=== PATIENT | female | born 1945 | race Caucasian/White ===

== ENCOUNTER 2018-08-10 15:06 | Inpatient (IN) ==
--- NOTE | 2018-08-10 15:43 | EKG Report ---
Test Performed on : 08/10/2018 3:37:05 PM Test Reason : HTN Blood Pressure : / mmHG Vent. Rate : 077 BPM Atrial Rate : 077 BPM P-R Int : 168 ms QRS Dur : 066 ms QT Int : 380 ms P-R-T Axes : -08 012 043 degrees QTc Int : 430 ms Normal sinus rhythm. Normal ECG No previous ECGs available Unconfirmed Result
[2018-08-10 15:58] LABS: BASO# 0.02 X1000 (0.0-0.2); BASO% 0.3 % (0.0-0.8); EOS# 0.31 X1000 (0.0-0.7); EOS% 3.9 % (0.0-10.0); HEMATOCRIT 42.9 % (37.0-47.0); HEMOGLOBIN 13.7 g/dL (12.0-16.0); LYMPH# 1.28 X1000 (1.2-3.4); LYMPH% 16.3 % (20.5-51.1); MCH 26.6 PG (27-31); MCHC 31.9 g/dL (33-37); MCV 83.1 FL (81-99); MONO# 0.73 X1000 (0.11-0.59); MONO% 9.3 % (1.7-9.3); NEUT# 5.52 X1000 (1.4-6.5); NEUT% 70.2 % (42.2-75.2); PLT 293 X1000 (130-400); RBC 5.16 XMIL (4.2-5.4); RDW 14.9 % (11.5-14.5); WBC 7.86 X1000 (4.8-10.8)
[2018-08-10 16:15] LABS: ALB/GLOB RATIO 1.4; ALBUMIN 4.4 g/dL (3.5-5.0); CALCIUM 9.5 mg/dL (8.8-10.2); CREATININE 1.5 mg/dL (0.5-0.9); POTASSIUM 4.8 mmol/L (3.5-5.1); TOTAL BILIRUBIN 0.39 mg/dL (0.20-1.00); TOTAL PROTEIN 7.5 g/dL (6.3-8.3)
[2018-08-10 16:23] LABS: INR 0.96; PROTIME 13.6 Seconds (11.0-16.0)
--- NOTE | 2018-08-10 17:49 | PROVIDER DOCUMENTATION ---
HPI-Cardiac General - General Chief Complaint: B/P Problems Stated Complaint: HIGH BP Time Seen by Provider: 08/10/18 17:49 Allergies/Adverse Reactions: Patient Allergies Allergy/AdvReac Type Severity Reaction Status Date / Time No Known Allergies Allergy Verified 08/10/18 15:32 - History of Present Illness-Cardiac Nature of Presenting Problem: report elevated bp 200s while at the drugstore. +headache, blurred vision, nausea. +sob intermittently attributed to her asthma. out of atenolol /chlorthalidone for awhile. no prior history of ARF or CHF. denied any other symptoms. Review of Systems - Adult - REVIEW OF SYSTEMS - ADULT Constitutional: reports: no symptoms reported Eyes: reports: no symptoms reported Ears, Nose, Mouth & Throat: reports: no symptoms reported Cardiovascular: reports: no symptoms reported Respiratory: reports: no symptoms reported Gastrointestinal: reports: no symptoms reported Genitourinary: reports: no symptoms reported Musculoskeletal: reports: no symptoms reported Integumentary: reports: no symptoms reported Neurological: reports: no symptoms reported Psychiatric: reports: no symptoms reported Endocrine: reports: no symptoms reported Hematologic/Lymphatic: reports: no symptoms reported Allergic/Immunologic: reports: no symptoms reported All Other Systems: Reviewed and Negative Past History - Adult - PAST MEDICAL HISTORY-ADULT Review of Records: reports: Old Records Reviewed, Nursing Assessment Review, Medications Reviewed, Social history reviewed & non-contributory. Major Childhood Illnesses: reports: denies history Cardiovascular: reports: HTN Respiratory: reports: asthma Gastrointestinal: reports: denies history Obstetrical/Gynecological: reports: denies history Genitourinary: reports: denies history Musculoskeletal: reports: arthritis (rheumatoid) Neurological: reports: denies history Endocrine/Immune: reports: denies history Other Conditions: reports: denies history - IMMUNIZATION STATUS Childhood Immunizations: See Nurse Assessment Flu Vaccine: See Nurse Assessment - FAMILY HISTORY Family History: reviewed, not pertinent - SOCIAL HISTORY Smoking: denies Substance Use: none/never Alcohol Use Frequency: never Living Situation: alone Physical Exam-General - PHYSICAL EXAM-ADULT Initial Vital Signs Reviewed: Yes - CONSTITUTIONAL General Appearance: appears well, alert, no apparent distress - EYES Eyes: PERRL/EOMI, pink conjunctivae - HEAD, EARS, NOSE, MOUTH & THROAT HENMT: normocephalic/atraumatic, moist mucous membranes - NECK Neck: non-tender, full range of motion - RESPIRATORY Respiratory: chest non-tender, lungs clear, normal breath sounds - CARDIOVASCULAR Cardiovascular: normal peripheral pulses, regular rate, rhythm, no edema - GASTROINTESTINAL (ABDOMEN) Abdominal Exam: normal bowel sounds, non tender, soft - MUSCULOSKELETAL Back Exam: normal inspection, no CVA tenderness, no vertebral tenderness Extremity: normal range of motion, non-tender, normal gait Peripheral Pulses: radial (R): 2+, radial (L): 2+, dorsalis-pedis (R): 2+, dorsalis-pedis (L): 2+ - SKIN Integumentary: normal color, normal turgor, warm/dry - NEUROLOGIC Neurologic: engine dynamometer tester II-XII nml as tested, grossly normal, no motor/sensory deficits - PSYCHIATRIC Psych/Mental Status: normal mood/affect, normal thought content, normal thought process, oriented x 3 Progress - PLAN OF CARE/RESULTS Progress/Plan/Lab Results: Vital Signs - 8 hr 08/10/18 15:24 08/10/18 16:21 08/10/18 19:37 Temperature 97.0 F L Pulse Rate 82 88 Pulse Rate [Sitting] Pulse Rate [Standing] Pulse Rate [Supine] Respiratory Rate 16 20 Blood Pressure 207/126 192/106 Blood Pressure [Sitting] Blood Pressure [Standing] Blood Pressure [Supine] O2 Sat by Pulse Oximetry 98 99 93 L 08/10/18 19:39 08/10/18 19:40 08/10/18 19:41 Temperature Pulse Rate 81 76 85 Pulse Rate [Sitting] Pulse Rate [Standing] Pulse Rate [Supine] Respiratory Rate 23 20 24 Blood Pressure 191/157 180/101 Blood Pressure [Sitting] Blood Pressure [Standing] Blood Pressure [Supine] O2 Sat by Pulse Oximetry 97 96 96 08/10/18 19:47 08/10/18 19:48 08/10/18 19:50 Temperature Pulse Rate 87 86 84 Pulse Rate [Sitting] Pulse Rate [Standing] Pulse Rate [Supine] Respiratory Rate 24 18 24 Blood Pressure 188/103 Blood Pressure [Sitting] Blood Pressure [Standing] Blood Pressure [Supine] O2 Sat by Pulse Oximetry 97 97 98 08/10/18 19:52 08/10/18 19:56 08/10/18 20:00 Temperature Pulse Rate 84 83 81 Pulse Rate [Sitting] Pulse Rate [Standing] Pulse Rate [Supine] Respiratory Rate 20 24 19 Blood Pressure 180/164 182/104 Blood Pressure [Sitting] Blood Pressure [Standing] Blood Pressure [Supine] O2 Sat by Pulse Oximetry 98 97 98 08/10/18 20:01 08/10/18 20:06 08/10/18 20:07 Temperature Pulse Rate 81 80 79 Pulse Rate [Sitting] Pulse Rate [Standing] Pulse Rate [Supine] Respiratory Rate 22 25 H 22 Blood Pressure 176/106 170/100 Blood Pressure [Sitting] Blood Pressure [Standing] Blood Pressure [Supine] O2 Sat by Pulse Oximetry 99 98 97 08/10/18 20:10 08/10/18 20:11 08/10/18 20:16 Temperature Pulse Rate 82 84 80 Pulse Rate [Sitting] Pulse Rate [Standing] Pulse Rate [Supine] Respiratory Rate 17 15 16 Blood Pressure 184/88 173/94 Blood Pressure [Sitting] Blood Pressure [Standing] Blood Pressure [Supine] O2 Sat by Pulse Oximetry 98 99 99 08/10/18 20:20 08/10/18 20:22 08/10/18 20:27 Temperature Pulse Rate 81 86 84 Pulse Rate [Sitting] Pulse Rate [Standing] Pulse Rate [Supine] Respiratory Rate 26 H 19 23 Blood Pressure 178/108 171/94 Blood Pressure [Sitting] Blood Pressure [Standing] Blood Pressure [Supine] O2 Sat by Pulse Oximetry 98 98 98 08/10/18 20:30 08/10/18 20:31 08/10/18 20:32 Temperature Pulse Rate 86 84 87 Pulse Rate [Sitting] Pulse Rate [Standing] Pulse Rate [Supine] Respiratory Rate 20 20 18 Blood Pressure 165/92 Blood Pressure [Sitting] Blood Pressure [Standing] Blood Pressure [Supine] O2 Sat by Pulse Oximetry 98 98 98 08/10/18 20:36 08/10/18 20:40 08/10/18 20:42 Temperature Pulse Rate 84 89 85 Pulse Rate [Sitting] Pulse Rate [Standing] Pulse Rate [Supine] Respiratory Rate 20 20 25 H Blood Pressure 151/77 142/114 Blood Pressure [Sitting] Blood Pressure [Standing] Blood Pressure [Supine] O2 Sat by Pulse Oximetry 99 98 100 08/10/18 20:46 08/10/18 20:50 08/10/18 20:51 Temperature Pulse Rate 84 82 83 Pulse Rate [Sitting] Pulse Rate [Standing] Pulse Rate [Supine] Respiratory Rate 26 H 22 18 Blood Pressure 147/87 149/85 Blood Pressure [Sitting] Blood Pressure [Standing] Blood Pressure [Supine] O2 Sat by Pulse Oximetry 98 99 98 08/10/18 20:56 08/10/18 21:00 08/10/18 21:01 Temperature Pulse Rate 83 83 85 Pulse Rate [Sitting] Pulse Rate [Standing] Pulse Rate [Supine] Respiratory Rate 17 12 20 Blood Pressure 158/81 140/87 Blood Pressure [Sitting] Blood Pressure [Standing] Blood Pressure [Supine] O2 Sat by Pulse Oximetry 100 97 98 08/10/18 21:06 08/10/18 21:10 08/10/18 21:11 Temperature Pulse Rate 90 92 H 89 Pulse Rate [Sitting] Pulse Rate [Standing] Pulse Rate [Supine] Respiratory Rate 18 18 16 Blood Pressure 171/102 165/89 Blood Pressure [Sitting] Blood Pressure [Standing] Blood Pressure [Supine] O2 Sat by Pulse Oximetry 98 98 99 08/10/18 21:17 08/10/18 21:20 08/10/18 21:21 Temperature Pulse Rate 87 83 85 Pulse Rate [Sitting] Pulse Rate [Standing] Pulse Rate [Supine] Respiratory Rate 22 18 17 Blood Pressure 175/89 172/82 Blood Pressure [Sitting] Blood Pressure [Standing] Blood Pressure [Supine] O2 Sat by Pulse Oximetry 98 98 98 08/10/18 21:26 08/10/18 21:30 08/10/18 21:31 Temperature Pulse Rate 84 84 84 Pulse Rate [Sitting] Pulse Rate [Standing] Pulse Rate [Supine] Respiratory Rate 18 19 16 Blood Pressure 144/93 170/91 Blood Pressure [Sitting] Blood Pressure [Standing] Blood Pressure [Supine] O2 Sat by Pulse Oximetry 98 98 98 08/10/18 21:37 08/10/18 21:40 08/10/18 21:42 Temperature Pulse Rate 82 91 H 86 Pulse Rate [Sitting] Pulse Rate [Standing] Pulse Rate [Supine] Respiratory Rate 21 29 H 24 Blood Pressure 158/95 161/78 Blood Pressure [Sitting] Blood Pressure [Standing] Blood Pressure [Supine] O2 Sat by Pulse Oximetry 98 97 97 08/10/18 21:46 08/10/18 21:50 08/10/18 21:52 Temperature Pulse Rate 82 83 79 Pulse Rate [Sitting] Pulse Rate [Standing] Pulse Rate [Supine] Respiratory Rate 24 24 18 Blood Pressure 160/87 142/100 Blood Pressure [Sitting] Blood Pressure [Standing] Blood Pressure [Supine] O2 Sat by Pulse Oximetry 97 97 97 08/10/18 23:16 Temperature Pulse Rate Pulse Rate [Sitting] 88 Pulse Rate [Standing] 81 Pulse Rate [Supine] 75 Respiratory Rate Blood Pressure Blood Pressure [Sitting] 146/104 Blood Pressure [Standing] 163/91 Blood Pressure [Supine] 162/62 O2 Sat by Pulse Oximetry Laboratory Results - last 24 hr 08/10/18 08/10/18 08/10/18 15:31 15:31 15:31 WBC 7.86 RBC 5.16 Hgb 13.7 Hct 42.9 MCV 83.1 MCH 26.6 L MCHC 31.9 L RDW Std Deviation 14.9 H Plt Count 293 MPV 11.0 H Immature Gran % (Auto) 0.0 Neut % (Auto) 70.2 Lymph % (Auto) 16.3 L Dundy % (Auto) 9.3 Eos % (Auto) 3.9 Baso % (Auto) 0.3 Immature Gran # (Auto) 0.00 Neut # (Auto) 5.52 Lymph # (Auto) 1.28 Dundy # (Auto) 0.73 H Eos # (Auto) 0.31 Baso # (Auto) 0.02 PT INR PTT (Actin FS) Sodium 135 L Potassium 4.8 Chloride 100 Carbon Dioxide 24 L Anion Gap 11 BUN 20 Creatinine 1.5 H Estimated GFR/1.73 m2 34 BUN/Creatinine Ratio 13 Glucose 115 H Estimat Average Glucose Hemoglobin A1c Calculated Osmolality 274 Calcium 9.5 Total Bilirubin 0.39 AST 22 ALT 13 Alkaline Phosphatase 89 Creatine Kinase 60 Troponin T Ehl-X-Geplcnbndht Pept 1281 H Total Protein 7.5 Albumin 4.4 Globulin 3.1 Albumin/Globulin Ratio 1.4 TSH 08/10/18 08/10/18 08/10/18 15:31 15:31 15:31 WBC RBC Hgb Hct MCV MCH MCHC RDW Std Deviation Plt Count MPV Immature Gran % (Auto) Neut % (Auto) Lymph % (Auto) Dundy % (Auto) Eos % (Auto) Baso % (Auto) Immature Gran # (Auto) Neut # (Auto) Lymph # (Auto) Dundy # (Auto) Eos # (Auto) Baso # (Auto) PT 13.6 INR 0.96 PTT (Actin FS) 38.0 Sodium Potassium Chloride Carbon Dioxide Anion Gap BUN Creatinine Estimated GFR/1.73 m2 BUN/Creatinine Ratio Glucose Estimat Average Glucose 108 Hemoglobin A1c 5.4 Calculated Osmolality Calcium Total Bilirubin AST ALT Alkaline Phosphatase Creatine Kinase Troponin T < 0.010 Fnv-E-Kkyklrdfofu Pept Total Protein Albumin Globulin Albumin/Globulin Ratio TSH 08/10/18 15:31 WBC RBC Hgb Hct MCV MCH MCHC RDW Std Deviation Plt Count MPV Immature Gran % (Auto) Neut % (Auto) Lymph % (Auto) Dundy % (Auto) Eos % (Auto) Baso % (Auto) Immature Gran # (Auto) Neut # (Auto) Lymph # (Auto) Dundy # (Auto) Eos # (Auto) Baso # (Auto) PT INR PTT (Actin FS) Sodium Potassium Chloride Carbon Dioxide Anion Gap BUN Creatinine Estimated GFR/1.73 m2 BUN/Creatinine Ratio Glucose Estimat Average Glucose Hemoglobin A1c Calculated Osmolality Calcium Total Bilirubin AST ALT Alkaline Phosphatase Creatine Kinase Troponin T Sqg-L-Kmzlzdqzzex Pept Total Protein Albumin Globulin Albumin/Globulin Ratio TSH 3.29 Orders Category Date Time Status Cardiac Monitoring DIRECTED Care 08/10/18 15:27 Active Orthostatic Vital Signs NOW Care 08/10/18 21:52 Active Repeat Vital Signs .Blood Pressure Care 08/10/18 21:52 Active Saline Loc NOW Care 08/10/18 15:[address] HEAD W/O CONTRAST [CT] Stat Exams 08/10/18 18:09 Completed cxr [CHEST-2 VIEWS] [RAD] Stat Exams 08/10/18 18:20 Completed A1C HGB W EST AVG GLUCOSE [CHEM] Stat Lab 08/10/18 15:31 Completed CBC WITH ELECTRONIC DIFF [HEME] Stat Lab 08/10/18 15:31 Completed CK PROFILE [SP CHEM] Q8H Lab 08/10/18 22:06 Ordered CK PROFILE [SP CHEM] Q8H Lab 08/11/18 06:06 Ordered CK PROFILE [SP CHEM] Q8H Lab 08/11/18 14:06 Ordered CK PROFILE [SP CHEM] Stat Lab 08/10/18 15:31 Completed COMPREHENSIVE METABOLIC PANEL [CHEM] Stat Lab 08/10/18 15:31 Completed PRO B-NATRIURETIC PEPTIDE Stat Lab 08/10/18 15:31 Completed PROTIME WITH INR [COAG] Stat Lab 08/10/18 15:31 Completed PTT [COAG] Stat Lab 08/10/18 15:31 Completed TROPONIN T Q8H Lab 08/10/18 22:06 Ordered TROPONIN T Q8H Lab 08/11/18 06:06 Ordered TROPONIN T Q8H Lab 08/11/18 14:06 Ordered TROPONIN T Stat Lab 08/10/18 15:31 Completed TSH Stat Lab 08/10/18 15:31 Completed UR CREAT RANDOM [URCHEM] Stat Lab 08/10/18 22:09 Uncollected UR OSMOLALITY [CHEM] Stat Lab 08/10/18 22:09 Uncollected UR PROT RANDOM [URCHEM] Stat Lab 08/10/18 22:09 Uncollected UR SODIUM [URCHEM] Stat Lab 08/10/18 22:09 Uncollected URINALYSIS W/POSS RFLX CULT [URINALYSIS] Stat Lab 08/10/18 22:09 Ordered Acetaminophen [Tylenol] Med 08/10/18 21:53 Discontinued 650 mg PO NOW ONE Amlodipine [Norvasc] Med 08/10/18 21:53 Discontinued 5 mg PO NOW ONE Furosemide [Lasix] Med 08/10/18 22:35 Discontinued 40 mg IV NOW ONE Labetalol Med 08/10/18 18:10 Discontinued 10 mg IV NOW ONE CP/SOB/Palp >45 yrs of Age Stat Oth 08/10/18 15:27 Ordered EKG [EKG] Stat Ther 08/10/18 15:27 Draft EKG [EKG] Stat Ther 08/10/18 18:16 Ordered Transfer/Admit Order [TRANSFER] Routine Transfer 08/10/18 20:[address], [place] [address] Department of Imaging Patient: HALEY FRIAS ADM Date: 08/10/18 MR#: [id number] : 1945 ADM Status: REG ER Age/Sex: 73/F Room/Bed: Loc: ED Ordering Physician: Kalli Palacios MD Family Physician: Joseph Christianson MD Reason for Procedure: cva ___ Signed EXAM: CT HEAD W/O CONTRAST - 08/10/2018 HISTORY: cva TECHNIQUE: CT head without contrast COMPARISON: None. FINDINGS: There is no evidence of intracranial hemorrhage, mass effect, midline shift, or hydrocephalus. There is mild ventricular asymmetry compatible with normal variation. There are mild chronic microvascular ischemic changes. There is no evidence of recent infarct, although acute infarcts may not be immediately visible. There are atherosclerotic calcifications noted at the base the brain. There is no evidence of skull fracture. IMPRESSION: No visible acute intracranial abnormality. No hemorrhage or mass effect. This exam was performed using automated exposure control, adjustment of mA or kV according to patient size, and/or use of iterative reconstruction technique. Electronically signed by Mj Weiss 08/10/2018 7:46 PM 08/10/181945 Interpreting Physician: Mj Weiss MD Dictated Date/Time: 08/10/181941 cc: Kalli Palacios MD; Joseph Christianson MD [address], [place] [address] Department of Imaging Patient: HALEY FRIAS ADM Date: 08/10/18 MR#: [id number] : 1945 ADM Status: REG Age/Sex: 73/F Room/Bed: Loc: ED Ordering Physician: Kalli Palacios MD Family Physician: Joseph Christianson MD Reason for Procedure: chf ___ Signed EXAM: CHEST-2 VIEWS - 08/10/2018 HISTORY: chf TECHNIQUE: Chest two views COMPARISON: 04/04/2018 FINDINGS: Heart size is within normal limits. There is mild prominence of vascular and interstitial markings. There is no dense consolidation, substantial pleural effusion, or pneumothorax identified. IMPRESSION: Apparent mild pulmonary edema. Electronically signed by Mj Weiss 08/10/2018 7:51 PM 08/10/181950 Interpreting Physician: Mj Weiss MD Dictated Date/Time: 08/10/181946 cc: Kalli Palacios MD; Joseph Christianson MD Result Diagrams: 08/10/18 15:31 08/10/18 15:31 - CONSULTS/PCP/HOSPITALIST Notification #1 *Consult/PCP/Hospitalist*: dr. Zheng/Dany Time Discussed: 18:31 (new onset heart failure. ARF, HTN uncontrolled. ) Consult Disposition: Admit (will pass on next shift) Departure - Departure Date of Disposition Decision: 08/10/18 Time of Disposition Decision: 18:32 DIAGNOSIS: CHF (congestive heart failure), ARF (acute renal failure), Pulmonary edema Disposition: ADMITTED INPATIENT 09 Certified Medical Emergency: Emergent Condition: Stable Referrals and Follow-Ups: Joseph Christianson MD [Primary Care Provider] - - Critical Care Note This patient required my direct & personal management of CC.: No Attestation - Physician/ ESSIE Attestation The physician spent face to face time with patient:: Yes Advanced Practice Provider documentation review:: Supervising physician onsite and consulted in the evaluation and care of this patient. The physician did have a face to face encounter with the patient.
[2018-08-10] MEDS ORDERED: LABETALOL IV ONE (18:10)
--- NOTE | 2018-08-10 19:48 | Diag Imaging Result Doc PS360 ---
EXAM: CT HEAD W/O CONTRAST - 08/10/2018 HISTORY: cva TECHNIQUE: CT head without contrast COMPARISON: None. FINDINGS: There is no evidence of intracranial hemorrhage, mass effect, midline shift, or hydrocephalus. There is mild ventricular asymmetry compatible with normal variation. There are mild chronic microvascular ischemic changes. There is no evidence of recent infarct, although acute infarcts may not be immediately visible. There are atherosclerotic calcifications noted at the base the brain. There is no evidence of skull fracture. IMPRESSION: No visible acute intracranial abnormality. No hemorrhage or mass effect. This exam was performed using automated exposure control, adjustment of mA or kV according to patient size, and/or use of iterative reconstruction technique. Electronically signed by Mj Weiss 08/10/2018 7:46 PM
--- NOTE | 2018-08-10 19:53 | Diag Imaging Result Doc PS360 ---
EXAM: CHEST-2 VIEWS - 08/10/2018 HISTORY: chf TECHNIQUE: Chest two views COMPARISON: 04/04/2018 FINDINGS: Heart size is within normal limits. There is mild prominence of vascular and interstitial markings. There is no dense consolidation, substantial pleural effusion, or pneumothorax identified. IMPRESSION: Apparent mild pulmonary edema. Electronically signed by Mj Weiss 08/10/2018 7:51 PM
[2018-08-10] MEDS ORDERED: TYLENOL PO ONE (21:53)
[2018-08-10] MEDS ORDERED: NORVASC PO ONE (21:53)
[2018-08-10 22:33] LABS: HEMOGLOBIN A1C 5.4 % (4.8-6.0)
[2018-08-10] MEDS ORDERED: LASIX IV ONE (22:35)
[2018-08-11] LABS: URINE SOURCE CLEAN CATCH
[2018-08-11 00:05] LABS: BILIRUBIN URINE NEGATIVE (NEGATIVE); BLOOD URINE NEGATIVE (NEGATIVE); COLOR STRAW; GLUCOSE URINE NEGATIVE (NEGATIVE); KETONE URINE NEGATIVE (NEGATIVE); LEUKOCYTES URINE NEGATIVE (NEGATIVE); NITRITE URINE NEGATIVE (NEGATIVE); PH URINE 6.5; PROTEIN URINE NEGATIVE (NEGATIVE); TURBIDITY URINE CLEAR (CLEAR); UR EPITHELIAL CELLS <10 /HPF (<10); URINE BACTERIA NEGATIVE /HPF; URINE RBC <10 /HPF (<10); URINE WBC <10 /HPF (<10); UROBILINOGEN URINE NORMAL (NORMAL)
[2018-08-11] MEDS ORDERED: TYLENOL PO PRN (00:10)
[2018-08-11 00:56] LABS: UR CREAT RANDOM 28.8 mg/dL (11-20); UR PROT RANDOM 5.6 mg/dL
[2018-08-11] MEDS ORDERED: ULTRAM PO PRN (05:37)
[2018-08-11] MEDS ORDERED: LABETALOL IV PRN (05:41)
[2018-08-11 05:54] LABS: BASO# 0.02 X1000 (0.0-0.2); BASO% 0.3 % (0.0-0.8); EOS# 0.19 X1000 (0.0-0.7); EOS% 2.6 % (0.0-10.0); HEMATOCRIT 41.7 % (37.0-47.0); HEMOGLOBIN 13.7 g/dL (12.0-16.0); LYMPH# 1.12 X1000 (1.2-3.4); LYMPH% 15.5 % (20.5-51.1); MCH 27.3 PG (27-31); MCHC 32.9 g/dL (33-37); MCV 83.2 FL (81-99); MONO# 0.68 X1000 (0.11-0.59); MONO% 9.4 % (1.7-9.3); MPV 10.8 FL (7.4-10.4); NEUT# 5.22 X1000 (1.4-6.5); NEUT% 72.2 % (42.2-75.2); PLT 193 X1000 (130-400); RBC 5.01 XMIL (4.2-5.4); RDW 14.8 % (11.5-14.5); WBC 7.23 X1000 (4.8-10.8)
[2018-08-11] MEDS: ZOFRAN IV PRN ×3 (06:30→18:21)
[2018-08-11 07:03] LABS: CALCIUM 9.9 mg/dL (8.8-10.2); CREATININE 1.5 mg/dL (0.5-0.9); MAGNESIUM 1.3 mg/dL (1.5-2.7); POTASSIUM 3.7 mmol/L (3.5-5.1)
[2018-08-11] MEDS: PRILOSEC PO SCH (07:31)
--- NOTE | 2018-08-11 08:16 | EKG Report ---
Test Performed on : 08/11/2018 00:55:00 AM Test Reason : elevated troponin Blood Pressure : / mmHG Vent. Rate : 070 BPM Atrial Rate : 070 BPM P-R Int : 164 ms QRS Dur : 070 ms QT Int : 440 ms P-R-T Axes : -29 026 079 degrees QTc Int : 475 ms Normal sinus rhythm. Normal ECG When compared with ECG of 10-AUG-2018 15:37, (Unconfirmed) No significant change was found Unconfirmed Result
--- NOTE | 2018-08-11 08:48 | Diag Imaging Result Doc PS360 ---
CHEST-2 VIEWS - 08/11/2018 INDICATION: Pulmonary Edema/SOB COMPARISON: 08/10/2018 FINDINGS: There has been resolution of the pulmonary edema. Heart size and pulmonary vascularity is normal. No pneumothorax or significant pleural effusion. IMPRESSION: Negative exam. Electronically signed by Arturo Springer 08/11/2018 8:46 AM
[2018-08-11] MEDS ORDERED: LEXAPRO PO SCH (09:00)
[2018-08-11] MEDS ORDERED: NORVASC PO SCH (09:00)
[2018-08-11] MEDS ORDERED: LASIX IV SCH (09:00)
--- NOTE | 2018-08-11 14:37 | PROGRESS NOTE ---
DATE: 08/11/2018 INTERVAL HISTORY: Ms Lux was admitted overnight for hypertensive emergency and acute form of cardiogenic pulmonary edema. She was started on antihypertensive medication, intravenous Lasix. Following she started feeling better. SUBJECTIVE: At the time of my evaluation, patient is complaining of headache and weakness. We discussed about her long-standing high blood pressure. We discussed about getting an echocardiogram. We discussed about negative heart attack markers. I answered all of the questions. We discussed about gradually increasing her antihypertensive medication dose and physical therapy. VITALS: Temperature of 97.3 degrees, pulse 92, respiratory rate 16, blood pressure 131/76 saturating 98% room air. PHYSICAL EXAMINATION: She does not appear in any acute distress. No pallor, cyanosis, clubbing, or icterus. Oral cavity is moist.Lungs: Air entry bilaterally equal no wheeze rhonchi or crackles. Cardiovascular: S1, S2 normal. No murmur or gallop. Abdomen: Soft, nontender. No jugular venous distention. She does not have lower extremity edema. She has trouble getting up from lying down position because of weakness. However, she was able to do that with my help. Neurologic: She is alert oriented x3. LABS: Suggestive of normal hemoglobin, hematocrit, platelet count. She does have what appears to be chronic kidney disease stage 3 and hypomagnesemia, which I will replete. Her proBNP on admission was 1200 and her troponin though 1 time was elevated to 0.15 and after that has been showing flat trend. EKG was suggestive of normal sinus rhythm. IMAGING: Head CT on admission did not have any acute intracranial abnormalities. ASSESSMENT AND PLAN: 1. Hypertensive emergency. The patient also reported to me prior history of irregular heart rhythm. I am unsure if she actually had a paroxysmal atrial fibrillation. I will resume her home antihypertensive medication which includes atenolol and chlorthalidone. I will follow up with echocardiogram. 2. Acute pulmonary edema in the setting of hypertensive emergency. She is status post intravenous Lasix. I will hold off on further Lasix and would add it back according to clinical examination tomorrow. 3. History of chronic gastroesophageal reflux disease , anxiety and chronic pain. I will resume her home escitalopram, omeprazole and tramadol as needed. DISPOSITION: The patient remains inside the hospital. I will also have physical therapy evaluation since she has become significantly weak. Plan of care was discussed with the patient and all of her questions have been answered. ADDENDUM: I was informed that the patient had a fall when she was feeling nauseous. She lost her balance and fell down and hit her head. She had some hematoma and she was complaining of headache. She is not on anticoagulation. I will assess her and if needed, we will repeat the CT scan. cc: Adam Ron MD
[2018-08-11] MEDS: MAGNESIUM SULFATE 2 GM/S.W.I. 2 GM/50 ML IVPB IV SCH ×2 (15:40→18:14)
--- NOTE | 2018-08-11 19:04 | HISTORY AND PHYSICAL ---
PRIMARY CARE PROVIDER: Joseph Christianson MD TIME OF ADMISSION: 2015 hours. CHIEF COMPLAINT: Elevated blood pressure. HISTORY OF PRESENT ILLNESS: Ms. Lux is a 73-year-old female with a past medical history most notable for hypertension and congestive heart failure. The patient reports that for approximately 1 month now she has been out of her regularly prescribed blood pressure medicine of atenolol/chlorthalidone. For the past few weeks the patient has reported symptoms of fatigue, increasing weakness, shortness of breath initially with exertion, though now she is reporting shortness of breath at rest as well. The patient reported over the last few days now that she has had headache and now is reporting some blurry vision as well. She is reporting some dizziness upon standing and with ambulation. At this time as previously mentioned, she is reporting orthopnea and exertional dyspnea, though she is denying any paroxysmal nocturnal dyspnea. She denies any ataxia, numbness, tingling, unilateral weakness or any speech disturbances. She denies any chest pain, cough, abdominal pain, nausea, vomiting or diarrhea. She denies any hematochezia or melena. She denies any dysuria or urinary frequency. She also denies any swelling in her extremities. The patient does report that she has chronic pain secondary to osteoarthritis and bilateral hip pain from previous hip surgery. Other than this, she has no new reported extremity pain. The patient was seen by her doctor yesterday in the office, Dr. Christianson. She was given a refill for her prescription, though even after the patient taking a dose of this her blood pressure was still elevated and she was still having symptoms as described above. She did call her doctor's office, who recommended her to come to the ER for further evaluation. Upon initial arrival to the ER, the patient's heart rate was 82, respirations 16, blood pressure was elevated at 207/126 with a MAP of 153. She had oxygen saturation of 98% on room air. Given her reported symptoms, further evaluation with a head CT without contrast was performed, which was negative for any acute intracranial abnormality. Chest x-ray did reveal apparent mild pulmonary edema. Laboratory results revealed an elevated creatinine at 1.5 with a GFR of 34 and slightly elevated proBNP of 1281. The initial cardiac enzymes are negative. The patient has been given some IV labetalol in the ER, and her blood pressure has improved, though is still elevated. The patient is reporting that her symptoms are improving, though she still is complaining of headache, blurry vision and some dizziness at this time. She does have some crackles noted in bilateral bases. There is no overt JVD noted. She has no peripheral edema noted as well. The patient will be admitted for further treatment and evaluation. REVIEW OF SYSTEMS: A 14-point review of systems was conducted with the patient. All were negative except for pertinent positives mentioned in the above HPI. PAST MEDICAL HISTORY: 1. Hypertension. 2. Congestive heart failure. 3. Chronic kidney disease which is followed by Dr. Munguia. 4. Asthma. 5. Osteoarthritis. 6. Osteoporosis. 7. Gastroesophageal reflux disease. 8. History of anxiety/depression for which the patient has recently been placed on Lexapro yesterday. PAST SURGICAL HISTORY: Bilateral hip replacements. SOCIAL HISTORY: The patient has no known history of tobacco, alcohol or illicit drug use. She does live alone but has family that lives close by, that does check on her very frequently. The patient is . She lost her approximately 2 years ago. She does report that since losing her she has had, according to her and family members at bedside, anxiety and depression, and has recently been having difficulty sleeping at night. The patient reports that she was given a new prescription for Lexapro yesterday. She does have assistive device for ambulation of a cane as needed. FAMILY HISTORY: Positive for her mother having a history of asthma. Her father secondary to a stroke. She reports that initially he had an ischemic stroke and then had a stroke a few years later that was hemorrhagic, from which he did pass away from complications of this. He also had a history of hypertension. ALLERGIES: The patient has no known allergies. HOME MEDICATIONS: 1. Atenolol/chlorthalidone 50/25 mg tablet 1 tablet p.o. daily. 2. Lexapro 10 mg p.o. daily. 3. Lansoprazole delayed-release 30 mg capsule p.o. daily. 4. Losartan potassium 100 mg p.o. daily. 5. Tramadol 50 mg tablet p.o. b.i.d. LABORATORY DATA: White blood cell count is 7860, hemoglobin 13.7, hematocrit 42.9, platelet count is 293,000. PT 13.6, INR 0.96, PTT is 38. Sodium 135, potassium 4.8, chloride 107, bicarbonate is 24, BUN 20, creatinine 1.5 with a GFR of 34, glucose is 115, calcium 9.5. Liver function tests within normal limits. CK 60. Troponin less than 0.01. ProBNP is 1291. TSH was 3.29. Urinalysis was obtained via clean catch and was negative for protein, glucose, ketones, blood, nitrites, leukocytes, white blood cells or bacteria. DIAGNOSTIC DATA: 1. Chest x-ray did show some mild pulmonary edema. 2. CT of the head showed no acute intracranial abnormality. 3. EKG showed normal sinus rhythm at a rate of 77 with a QTc of 430. PHYSICAL EXAMINATION: VITAL SIGNS: Heart rate 84, respirations 20, blood pressure is 171/94 with a MAP of 100, oxygen saturation is 98% on room air. GENERAL: Ms. Lux is a very pleasant 73-year-old female. She was resting in the ER stretcher. She was in no acute distress. She was awake, alert and able to answer questions appropriately. HEENT: Head is atraumatic, normocephalic. Pupils are equal, round and reactive to light, were 3 mm bilaterally and brisk. Oral mucosa is moist. Oropharynx is clear. NECK: Supple. Trachea midline. No carotid bruits noted on auscultation bilaterally. No JVD noted. CARDIOVASCULAR: The patient had S1, S2 present. No murmurs, gallops or rubs appreciated, with a regular rate and rhythm. PULMONARY: The patient has symmetrical chest expansion bilaterally. Lung sounds are clear to auscultation in bilateral upper huizar, though she did have fine crackles noted in bilateral bases. ABDOMEN: Soft, nontender, nondistended. Bowel sounds are present in all 4 quadrants, were normoactive. EXTREMITIES: No cyanosis, clubbing or edema noted. Pulse, motor and sensory were intact in all extremities. Radial pulses and pedal pulses were 2+ bilaterally. INTEGUMENTARY: The patient's skin is pink, warm and dry. NEUROLOGICAL: The patient is alert and oriented to person, place, time and situation. The patient's huizar of vision are intact. Pupils are equal, round and reactive to light, were 3 mm bilaterally and brisk. She has no speech disturbances noted. She has no ataxia or [*]present at this time. The patient is reporting generalized weakness. Muscle strength and hand grasps are equal bilaterally. She has no facial droop noted. There are no focal neurological deficits noted at this time. ASSESSMENT AND PLAN: 1. Hypertensive urgency. As previously mentioned, the patient has been out of her blood pressure medications of atenolol/chlorthalidone. This is likely the cause of her symptoms of headache, blurry vision, and some dizziness that she is still experiencing at this time, though she is reporting that her symptoms are improving as her blood pressure has improved. The patient was given a dose of intravenous labetalol in the emergency room and her blood pressure has improved. We will go ahead and give her a dose of Norvasc 5 mg tonight and continue this b.i.d. We will bring her blood pressure down slowly. There is what appears to be possible [id number] kidney disease. Given this, for tonight and in the morning we will hold her losartan. We will continue to monitor this closely. We will do frequent vital signs. She will be placed on continuous cardiac telemetry. 2. Mild congestive heart failure exacerbation. The patient, as previously mentioned, has been out of her atenolol/chlorthalidone combination medicine. Given this, her hypertensive urgency has caused her to have development of some pulmonary edema. We will go ahead and give her dose of Lasix 40 mg intravenously. We will continue this just daily and closely monitor response to this. We will perform an echocardiogram in the morning. The patient's second troponin had increased some, but the patient is still denying chest pain at this time. This may be related to her hypertensive urgency. Repeat electrocardiogram did not show any acute changes. We will continue with the series of cardiac enzymes and another electrocardiogram in the morning, and monitor this closely. 3. Acute on chronic kidney disease. On looking back, the patient has had elevated creatinine ranging from 1.3 to 1.8 since 2012. Though we do not have any creatinine to compare this to for the last few months. Given this, as previously mentioned, we have held her losartan. We will repeat chemistries in the morning. We will do strict intake and output. We will avoid nephrotoxic medications and renally dose medications as necessary. 4. History of asthma. We have placed p.r.n. DuoNeb treatments as needed. 5. Gastroesophageal reflux disease. We will continue her regularly prescribed home medication of lansoprazole. 6. Anxiety and depression. We will continue her Lexapro. 7. Deep vein thrombosis prophylaxis will be provided with sequential compression devices. The patient has been placed on the medical floor with telemetry. She will have vital signs q.4 hours. We will do neurologic checks q.4 hours as well. She will be on a heart-healthy diet. The patient has expressed that once her condition has improved she would like to be discharged as soon as possible. Further orders and recommendations pending hospital course, diagnostic studies and physician evaluation. Dictated by JOSE Adam for Artem Banks MD cc: Artem Banks MD
--- NOTE | 2018-08-11 19:34 | PROGRESS NOTE ---
DATE: 08/11/2018 ADDENDUM: Apparently, Ms. Lux was having nausea, and when patient's niece was at bedside, the patient initially tried to come out of bed and sit on the commode, and then later on, niece helped her sit at the edge of the bed, and the niece went to get something so that she can throw up. The patient lost her balance, and she fell down and hit her head. I was notified of this. She developed about a 1-inch linear laceration affecting the right forehead. I evaluated the patient. At the time, the patient is getting echocardiogram. She is complaining of some headache, but she has been having headaches since presentation. Currently on my neurological examination, she is alert and oriented x3. Bilateral pupils are equal, reacting to light. She is able to raise both of her eyebrows and smile. Her speech appears normal. She has intact cough. Her speech appears normal. She has intact sensation, bilateral upper and lower extremities and trunk. She has power of 5/5 on bilateral upper and lower extremity. Her neurological examination is essentially nonfocal. I discussed with the nurse about just continuing with the neuro checks, and she does not need CT scan of the head at the moment. If her nausea and vomiting continues, I will consider further imaging as appropriate. Plan of care discussed the patient and her niece at bedside. All of their questions have been answered. cc: Adam Ron MD
[2018-08-12] MEDS: DUONEB (A & A) INH PRN ×3 (02:36→15:28)
[2018-08-12] MEDS: PRILOSEC PO SCH (06:06)
[2018-08-12] MEDS ORDERED: NORVASC PO SCH (09:00)
[2018-08-12] MEDS: TENORMIN PO SCH (09:40)
[2018-08-12] MEDS: HYGROTON PO SCH (09:40)
--- NOTE | 2018-08-12 14:17 | PROGRESS NOTE ---
DATE: 08/12/2018 INTERVAL HISTORY: No acute events overnight. SUBJECTIVE: The patient's family is at bedside. The patient denies any new complaints. She complains of still feeling very weak and is complaining of a headache without any new symptoms. She has not had any more nausea or vomiting since morning time. She tells me that she has had issues with chronic nausea and vomiting and she has been seeing a software support technician at [facility]. PHYSICAL EXAMINATION: Vital signs: Currently, temperature 97.5 degrees, pulse 78, respiratory rate 18, blood pressure 157/69, saturating 92% on room air. General: Appears weak, not in any acute distress. She has a bruise of about 3 x 3 cm on the right forehead with some tenderness surrounding. She does not have any injury inside the mouth. She does have poor dentition though. Otherwise oral cavity is moist. Lungs: Air entry bilaterally equal. No wheeze, rhonchi, crackles. Cardiovascular: S1, S2 normal. No murmur, rub, or gallop. Abdomen: Soft, nontender. No lower extremity edema. She is able to hold my arm and sit up in the bed without any trouble. Extremities: She is able to move both lower extremities, upper extremities while repositioning herself without any trouble. Neurologic: She is alert and oriented x3. LABORATORY DATA: No CBC or BMP today. No microbiological data. No imaging. ASSESSMENT AND PLAN: 1. Hypertensive emergency due to medication noncompliance. Continue atenolol chlorthalidone and adjust dose according to has tolerated acute pulmonary edema in the setting of hypertensive emergency, now resolved status post intravenous Lasix. 2. Acute pulmonary edema due to HTN emergency: Plan as mentioned above. 3. Mechanical fall with forehead hematoma: Local wound dressing. 2. Others. Continue omeprazole for chronic gastroesophageal reflux disease, tramadol for chronic pain. I am holding escitalopram considering her nausea and vomiting. 3. Disposition. I will continue physical therapy. The patient has expressed that she would not like to go to rehab and she would prefer home physical therapy. She may also prefer Meals on Wheels and patient's family at bedside agrees. I discussed with them about that we might want to observe her for another 24 hours and if she continues to do better, may be discharged on Tuesday with home physical therapy. They all are in agreement. Plan of care discussed with the patient as well. All of her questions have been satisfactorily answered. cc: Adam Ron MD MTDD
[2018-08-13] MEDS: PRILOSEC PO SCH (06:24)
[2018-08-13 06:50] LABS: BASO# 0.01 X1000 (0.0-0.2); BASO% 0.1 % (0.0-0.8); EOS# 0.04 X1000 (0.0-0.7); EOS% 0.3 % (0.0-10.0); HEMATOCRIT 42.1 % (37.0-47.0); IMM GRAN# 0.02 X1000 (0.0-0.04); IMM GRAN% 0.2 % (0.0-0.5); LYMPH# 1.62 X1000 (1.2-3.4); LYMPH% 14.2 % (20.5-51.1); MCH 27.2 PG (27-31); MCHC 33.3 g/dL (33-37); MCV 81.7 FL (81-99); MONO# 1.04 X1000 (0.11-0.59); MONO% 9.1 % (1.7-9.3); MPV 11.1 FL (7.4-10.4); NEUT# 8.71 X1000 (1.4-6.5); NEUT% 76.1 % (42.2-75.2); PLT 311 X1000 (130-400); RBC 5.15 XMIL (4.2-5.4); RDW 14.3 % (11.5-14.5); WBC 11.44 X1000 (4.8-10.8)
[2018-08-13 07:27] LABS: CALCIUM 9.6 mg/dL (8.8-10.2); CREATININE 1.7 mg/dL (0.5-0.9); MAGNESIUM 2.1 mg/dL (1.5-2.7); PHOSPHORUS 3.8 mg/dL (2.7-4.5); POTASSIUM 3.5 mmol/L (3.5-5.1)
[2018-08-13] MEDS: TENORMIN PO SCH (08:26)
[2018-08-13] MEDS: HYGROTON PO SCH (08:26)
[2018-08-13] MEDS: DUONEB (A & A) INH PRN (09:12)
--- NOTE | 2018-08-13 15:29 | PROGRESS NOTE ---
DATE: 08/13/2018 INTERVAL HISTORY: No acute event overnight. On my initial encounter, patient was walking around her bed, trying to get off the potty which she was doing without anyone's help. Today, she is denying any chest pain, shortness of breath, abdominal pain, nausea, vomiting. She continues to have a little bit of headache for which she is taking acetaminophen as needed. VITALS: Currently detect a temperature of 97.9 degrees, pulse 65, respiratory rate 14, blood pressure 143/63, saturating 98% on room air. PHYSICAL EXAMINATION: General: She does not appear in any acute distress. She appears pleasant. She has a bruise of about 2 x 2 cm on the right forehead with some tenderness surrounding. Otherwise, oral cavity is moist. No pallor, cyanosis, clubbing, or icterus. Lungs: Air entry bilaterally equal. No wheeze, rhonchi, crackles. Cardiovascular: S1, S2 normal. No murmur, rub, or gallop. Abdomen: Soft, nontender. Extremities: No lower extremity edema. She is alert and oriented x3. LABS: Suggestive of acceptable range of WBC count, normal hemoglobin and hematocrit, and normal platelet count. Sodium of 132, chloride of 91, elevated BUN and creatinine suggestive of chronic kidney disease stage 3. No new microbiological data. No new imaging data. Echocardiogram had suggested ejection fraction of 50%. There was hypokinesia in the anterior septum. However, it was a difficult study. The patient was not having any chest pain. She was advised to follow up with heart doctor as an outpatient. ASSESSMENT AND PLAN: 1. Hypertensive emergency and acute cardiogenic pulmonary edema due to medication noncompliance. Continue atenolol, chlorthalidone which is controlling her blood pressure better. She is off intravenous Lasix and her pulmonary edema has been resolved. 2. Mechanical fall with forehead hematoma while inside the hospital. Continue local wound dressing. She does not have any focal neurological deficit. 3. Others. Continue omeprazole for chronic gastroesophageal reflux disease; tramadol for chronic pain, however, chronic kidney disease stage 3 is stable. 4. Disposition. The patient is hemodynamically stable and has not had any other further episodes of nausea, vomiting, or shortness of breath. She is medically ready to be discharged. However, we are awaiting social media senior associate team to come by tomorrow and have home physical therapy set up. The patient would also need help with meals at home. Discussed with the social media senior associate team if we can offer some help to her at the time of discharge. Plan of care discussed with her. All of her questions have been answered. cc: Adam Ron MD
[2018-08-14] MEDS: PRILOSEC PO SCH (06:24)
[2018-08-14] MEDS: HYGROTON PO SCH (09:10)
[2018-08-14] MEDS: TENORMIN PO SCH (09:10)
[2018-08-14 15:17] VITALS: BP 145/81
--- NOTE | 2018-08-14 19:08 | DISCHARGE SUMMARY ---
ADMISSION DATE: 08/11/2018 DISCHARGE DATE: 08/14/2018 DISPOSITION: Home with home physical therapy as well as home health. DISCHARGE DIAGNOSES: 1. Hypertensive emergency. 2. Acute pulmonary edema. 3. Medication noncompliance. 4. Mechanical fall inside the hospital. 5. Chronic gastroesophageal reflux disease. 6. Chronic abdominal cramps. OTHER DIAGNOSES: Essential hypertension, history of chronic kidney disease stage 3, asthma, osteoarthritis, osteoporosis, history of anxiety, depression. CONSULTATIONS DURING HOSPITALIZATION: None. VITALS AT THE TIME OF DISCHARGE: Temperature 98.5 degrees, pulse 68, respiratory rate 20, blood pressure 145/81 saturating 99% on room air. PHYSICAL EXAMINATION: General: Ms Lux does not appear in any acute distress. Oral cavity is moist. Lungs: Air entry bilaterally equal. No wheeze, rhonchi, or crackles. Cardiovascular: S1, S2 normal. No murmur, rub, or gallop. Abdomen: Soft, nontender. Extremities: No lower extremity edema. Neurologic: She is alert and oriented x3. LABORATORY [place]: [place] [address], hemoglobin 14, platelet of 311,000. Sodium of 132, chloride of 91, BUN of 41, creatinine of 1.7. Her magnesium was 2.1. Significant microbiological data during hospital admission, none. SIGNIFICANT IMAGING DURING HOSPITAL ADMISSION: Head CT on admission did not have any visible acute intracranial abnormality. There was no hemorrhage or mass effect. Chest x-ray had mild pulmonary edema on August 10. On August 11 pulmonary edema had resolved. DISCHARGE MEDICATIONS: Lansoprazole 30 mg 1 capsule daily, escitalopram 10 mg tablet daily, tramadol 50 mg p.o. b.i.d., atenolol chlorthalidone 1 tablet off 50 mg/25 mg daily, dicyclomine 10 mg p.o. every 12 hours as needed for abdominal cramps, 10 tablets have been prescribed. HOSPITAL COURSE SUMMARY: Ms. Lux is a 73-year-old lady with past medical history of essential hypertension and medication noncompliance who came in with complaints of elevated blood pressure. Apparently, she had run out of her blood pressure medication for 1 month and subsequently she had started developing fatigue, increasing weakness, shortness of breath initially with exertion, which progressed to shortness of breath at rest. She also had associated headache and blurry vision and dizziness upon standing with ambulation. With these symptoms she came to the hospital admission. On emergency room evaluation, she was found to have hypertensive emergency with systolic blood pressure of 207 and diastolic of 126. Her heart rate was 82 and she was appearing short of breath. Her proBNP was elevated to 1200. She was started on intravenous Lasix and intravenous antihypertensive medications following which she started feeling better. She was kept in the hospital and did slowly transition to her p.o. medication which is chlorthalidone and atenolol. She tolerated that well. Her echocardiogram had ejection fraction of 65%. There was a question of mild hypokinesia of the anterior septum. However, patient did not have any chest pain. During hospital admission, patient's blood pressure was well controlled. Her electrolytes were within acceptable range. She was kept over the weekend until social work professor became available on Tuesday, and at that point, home physical therapy was arranged for her. She was advised to follow up with her kidney doctor, Dr. Munguia for chronic kidney disease stage 3, which was stable. Her maintenance and custodian supervisor, Dr. Oakley for her chronic abdominal cramps for which she was given dicyclomine, for her leather crafter Dr. Vallejo at [facility] for her hypertension management as well as an echocardiogram findings. She was not complaining of any chest pain or shortness of breath and was appropriate for discharge at home. Previously, she had mentioned that she would not want to go to rehab, While inside the hospital on day 1 of admission she also was feeling nauseous and while sitting at the edge of the bed, she had fallen down and hit her head and she had a small hematoma affecting the right side of her forehead. However, at the time of discharge, it was healing well with already a scab formation and she did not have any neurological abnormality. TIME SPENT: More than 30 minutes were spent in discharging the patient. All of her questions and her niece's questions at bedside were answered satisfactorily. cc: Adam Ron MD
--- NOTE | 2018-08-16 08:40 | ECHO REPORT ---
DATE: 08/11/2018 INDICATION: CHF. FINDINGS: 1. The right atrium appears normal in size. 2. Suggestion of trace tricuspid regurgitation. 3. Normal RV size and systolic function. 4. No significant pulmonic insufficiency. 5. Normal left atrial size. 6. No mitral valve prolapse. No significant mitral regurgitation. 7. Normal LV size, end-diastolic dimension of 3.8. Normal wall thicknesses with posterior and interventricular septal wall thickness of 0.8 cm each. Borderline normal LV systolic function with an estimated EF of 50%. Echo contrast was used on this study and suggested hypokinesis of the anterior septum. This is a difficult study with off-axis views. 8. The aortic valve opens well. There is no evidence of stenosis or insufficiency. 9. The aorta appears normal in visualized segments. 10. No pericardial effusion identified on this study. There is an anterior echo-free space on some views, which I believe is most consistent with a pericardial fat pad. There does not appear to be any clear evidence of tamponade type physiology. cc: Michael Whyte MD
== END 2018-08-14 18:01 | disposition home health service (06) | DRG 305 ==
LOC: ED 15:06 → EDIPHOLD 08-11 01:26 → SUATTDRO 08-11 01:26 → 4N 08-11 06:16
PROVIDERS: ATTEND Internal Medicine
CPT/HCPCS: 70450; 71020; 71046; 80048; 80053; 81001; 82550; 82570; 83036; 83735; 83880; 83935; 84100; 84156; 84300; 84443; 84484; 85025; 85610; 85730; 93005; 93306; 94640; 94760; 94761; 94799; 96374; 96375; 97116; 97162; 97530; 99285; A9270; C8929; J1940; J2405; J3475; Q9957